=== PATIENT | female | born 1965 | race Caucasian/White ===

== ENCOUNTER 2017-12-24 16:12 | Emergency (ER) | payer BC ==
[~2017-12-24] VITALS: Ht 170.2 cm; Wt 105.3 kg
[~2017-12-24 16:12] MED LIST: ALPRAZOLAM0.5 MG PO; BACTRIM,SEPT1 TABLET PO; HYDROCODON-ACE1 EAC7 PO; NORCO 5/3251 TABLET PO; OMEPRAZOLE40 M1 PO; SERTRALINE HCL25 MG PO; ZOFRAN ODT4 MG PO; ZOFRAN4 MG PO
[2017-12-24] MEDS ORDERED: ROBITUSSIN AC,T10 ML PO (19:21)
[2017-12-24] MEDS ORDERED: VENTOLIN HFA18 GM IH (19:21)
[2017-12-24] MEDS ORDERED: PREDNISONE20 MG PO (19:21)
[2017-12-24 19:43] VITALS: BP 136/107
== END 2017-12-24 19:44 | disposition home or self-care (01) ==
LOC: EME 16:12
DX: J06.9 Acute upper respiratory infection, unspecified (principal); F41.9 Anxiety disorder, unspecified; F32.9 Major depressive disorder, single episode, unspecified; Z87.891 Personal history of nicotine dependence; Z90.49 Acquired absence of other specified parts of digestive tract; Z90.710 Acquired absence of both cervix and uterus; Z91.013 Allergy to seafood; Z88.8 Allergy status to other drugs, medicaments and biological substances
CPT/HCPCS: 71046; 99281; 99283

== ENCOUNTER 2018-01-01 00:46 | Emergency (ER) | payer BC ==
[~2018-01-01] VITALS: Ht 170.2 cm; Wt 105.8 kg
[~2018-01-01 00:46] MED LIST changes: +PREDNISONE20 MG PO; +ROBITUSSIN AC,T10 ML PO; +VENTOLIN HFA18 GM IH
[2018-01-01] MEDS ORDERED: NORCO 5/3251 TABLET PO (02:03)
[2018-01-01] MEDS ORDERED: MOTRIN800 MG PO (02:03)
[2018-01-01 03:13] VITALS: BP 140/92
== END 2018-01-01 03:15 | disposition home or self-care (01) ==
LOC: EME 00:46
DX: S80.02XA Contusion of left knee, initial encounter (principal); S80.212A Abrasion, left knee, initial encounter; M23.92 Unspecified internal derangement of left knee; W01.0XXA Fall on same level from slipping, tripping and stumbling without subsequent striking against object, initial encounter
CPT/HCPCS: 73564; 99281; 99284; J1885; L3650